=== PATIENT | female | born 2000 | race Caucasian/White ===

== ENCOUNTER → 2022-10-07 07:07 | Outpatient (CLI) | payer OTHER, SELFPAY ==
--- NOTE | 2022-10-07 07:10 | DI.MRI.S_ITS ---
PROCEDURE: MR HEAD/BRAIN WO CON INDICATIONS: Paresthesia of skin/Monoplegia of lower limb TECHNIQUE: Noncontrast axial T1 spin echo, axial T2 fast spin echo, sagittal and axial FLAIR, coronal T2 fast spin echo, axial gradient echo, axial diffusion and ADC through the brain. COMPARISON: None. FINDINGS: Image quality: Excellent. CSF Spaces: Basal cisterns are patent. No extra-axial fluid collections. Ventricles are normal in size and shape. Brain: No intracranial masses or hemorrhage. Ramirez/white matter interface is normal. Brainstem appears normal. Diffusion-weighted images demonstrate no acute ischemic insult. No chronic ischemic insults. Normal intravascular flow voids are present. Skull and face: Calvarium has normal marrow signal. Orbits appear normal. Sinuses: Sinuses and mastoids are clear. IMPRESSION: 1. No acute process. 2. No explanation for paresthesias. 3. No recent infarct. Dictated by: Devora Cadena M.D. on 10/07/2022 at 10:05 Approved by: Devora Cadena M.D. on 10/07/2022 at 10:06
--- NOTE | 2022-10-07 07:10 | DI.MRI.S_ITS ---
PROCEDURE: MR LUMBAR SPINE WO CON INDICATIONS: Paresthesia of skin/Monoplegia of lower limb TECHNIQUE: Noncontrast sagittal T1 spin echo and T2 fast echo, coronal T2, sagittal STIR, and T2 fast spin echo through the lumbar spine. COMPARISON: None. FINDINGS: Image quality: Excellent. Alignment and Curvature: No plain films are available for comparison, for numbering purposes. Thus, for the purposes of this examination, 5 lumbar type vertebral bodies will be presumed, as denoted on the montage panel. This should be confirmed and correlated with plain films, prior to any lumbar spinal intervention. There is normal bony alignment. Bone Marrow: Marrow is of normal overall signal. No acute vertebral body compression fractures. 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 Spinal Cord: Conus medullaris terminates at the upper L2 level. Visualized cord demonstrates normal signal and size. Paraspinous Soft Tissues: No paravertebral masses. T11-T12: Moderate disc height loss and desiccation. Mild diffuse disc bulge with superimposed right paracentral protrusion. Mild facet and ligamentum flavum hypertrophy. Mild canal stenosis. Minimal right cord flattening. No foraminal stenosis. T12-L1: Normal appearance. L1-L2: Normal appearance. L2-L3: Normal appearance. L3-L4: Normal appearance. L4-L5: Normal appearance. L5-S1: Normal appearance. IMPRESSION: 1. 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 There is mild canal stenosis and minimal cord flattening at this level. 2. 5 lumbar type vertebral bodies were presumed for the current report. Plain films of the lumbar spine are recommended for confirmation, prior to any lumbar spinal intervention. Dictated by: Devora Cadena M.D. on 10/07/2022 at 10:06 Approved by: Devora Cadena M.D. on 10/07/2022 at 10:10
== END ==
DX: M51.24 Other intervertebral disc displacement, thoracic region (principal); M48.04 Spinal stenosis, thoracic region; R20.2 Paresthesia of skin; G83.10 Monoplegia of lower limb affecting unspecified side
CPT/HCPCS: 70551; 72148

== ENCOUNTER → 2024-02-27 13:49 | Outpatient (CLI) | payer OTHER, SELFPAY ==
--- NOTE | 2024-02-27 13:51 | DI.MRI.S_ITS ---
PROCEDURE: MR LUMBAR SPINE WO CON INDICATIONS: Low back pain TECHNIQUE: Noncontrast sagittal T1 spin echo and T2 fast echo, sagittal STIR, and T2 fast spin echo through the lumbar spine. In cases with scoliosis, additional coronal T2 fast spin echo may be performed. COMPARISON: [facility] Outside Film, CR, XR LUMBAR SPINE 2 OR 3 VIEWS, 08/04/2023, 11:52. [facility] Outside Film, CR, XR THORACOLUMBAR SPINE 2 VIEWS, 10/28/2022, 10:32. [facility], , MR LUMBAR SPINE WO CON, 10/07/2022, 7:49. FINDINGS: Image quality: Diagnostic. Alignment and Curvature: There is normal bony alignment. Bone Marrow: Marrow is of normal overall signal. No acute vertebral body compression fractures. 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 T11 is incompletely imaged on this study compared to the prior study. Unchanged appearance of moderate degenerative endplate changes involving the superior endplate of T11. Spinal Cord: Conus medullaris terminates at the superior aspect of L2 level. Visualized cord demonstrates normal signal and size. Paraspinous Soft Tissues: No paravertebral masses. T11-T12: There is disc space loss at T11-T12 with degenerative endplate changes involving the superior endplate of T11. Minimal symmetric disc bulge. No significant neuroforaminal or spinal canal stenosis. T12-L1: No significant neuroforaminal or spinal canal stenosis. L1-L2: No significant neuroforaminal or spinal canal stenosis. L2-L3: No significant neuroforaminal or spinal canal stenosis. L3-L4: No significant neuroforaminal or spinal canal stenosis. L4-L5: No significant neuroforaminal or spinal canal stenosis. L5-S1: No significant neuroforaminal or spinal canal stenosis. IMPRESSION: 1. MRI lumbar spine without acute abnormalities. 2. Redemonstration of hemivertebrae variant at T11 with stable appearance of degenerative endplate changes of the superior endplate of T11 with mild spondylitic changes at T11-T12. Of note, the T10-T11 level was not imaged on this examination. 3. Otherwise, unremarkable MRI evaluation of the lumbar spine without significant spinal canal stenosis or neuroforaminal stenosis from T12-L1 through L5-S1. Dictated by: Darshan Koo M.D. on 02/27/2024 at 14:23 Approved by: Darshan Koo M.D. on 02/27/2024 at 14:39
== END ==
PROVIDERS: Referring Provider Preventive Medicine Aerospace Medicine; Visit Provider Preventive Medicine Aerospace Medicine
DX: M54.50 Low back pain, unspecified (principal)
CPT/HCPCS: 72148